=== PATIENT | male | born 1985 | race Caucasian/White ===

== ENCOUNTER 2017-04-30 22:06 | Observation (INO) | payer BC, OTHER ==
[2017-04-30] MEDS ORDERED: KETOROLAC 30 MG/1 ML SDV IVP ONE (23:08)
[2017-04-30] MEDS ORDERED: NS 1,000 ML IV ONE ×2 (23:08→23:51)
--- NOTE | 2017-04-30 23:26 | EDPHY ---
H & P Smoking Status: Current some day smoker Time Seen by Provider: 04/30/17 22:55 HPI/ROS: CHIEF COMPLAINT: Right flank pain, abdominal pain HISTORY OF PRESENT ILLNESS: 31-year-old male presents to the emergency department complaining of severe right flank pain that began at noon today. The patient has a history of frequent kidney stones some he is able to pass on his own and he has also required lithotripsy in the past. Patient states that this does feel like a kidney stone although he states this episode is lasting much longer. Denies hematuria. Denies dysuria, urgency or frequency. Denies any reported trauma. Feels nauseous although no vomiting. No fevers or chills. He has had both left and right-sided kidney stones. REVIEW OF SYSTEMS: Constitutional: No fever, no chills. Eyes: No double or blurry vision. ENT: No sore throat. Respiratory: No cough, no shortness of breath. Cardiac: No chest pain. Gastrointestinal: As above. No vomiting. Diarrhea today. Genitourinary: No dysuria. Musculoskeletal: Right flank pain. No neck pain. Skin: No rashes. Neurological: No headache. (Marii Harrington) Past Medical/Surgical History: Frequent kidney stones requiring lithotripsy (Marii Harrington) Social History: Single and lives in [place] (Marii Harrington) Physical Exam: General Appearance: Alert. Afebrile. Mild distress. Eyes: Pupils equal and round. Extraocular motions are all intact. ENT: Mouth: Mucous membranes moist. Respiratory: No wheezing, rhonchi, or rales, lungs are clear to auscultation. Cardiovascular: Regular rate and rhythm. Gastrointestinal: Abdomen is soft. Mild tenderness with palpation in the right lower quadrant. There is no rebound, guarding or masses noted. Positive CVA tenderness on the right, none on the left. Neurological: Alert and oriented x 3, cranial nerves II through XII grossly intact Skin: Warm and dry, no rashes. Musculoskeletal: Nontender to palpate along the cervical, thoracic or lumbar spine. Neck is supple. Extremities: Full range of motion and no peripheral edema. Psychiatric: Patient is oriented X 3, there is no agitation. (Marii Harrington) Constitutional: Initial Vital Signs Temperature (C) 37.1 C 04/30/17 22:16 Heart Rate 81 04/30/17 22:16 Respiratory Rate 16 04/30/17 22:16 Blood Pressure 124/97 H 04/30/17 22:16 O2 Sat (%) 96 04/30/17 22:16 O2 Delivery Mode Room Air Allergies/Adverse Reactions: No Known Allergies Allergy (Verified 04/30/17 22:18) Home Medications: Medication Instructions Recorded Acetaminophen [Tylenol 325mg (*)] 325 mg PO DAILY PRN 05/01/17 Phenazopyridine HCl [Pyridium] 200 mg PO TID #20 tab 05/02/17 oxyCODONE IR [Oxycodone Ir (*)] 5 - 10 mg PO Q3HRS PRN #10 tab 05/02/17 Medical Decision Making ED Course/Re-evaluation: 31-year-old male presents to the emergency department with right flank pain and right-sided abdominal pain. History of frequent kidney stones. An IV was established and laboratory studies were drawn and are pending. CT scan of the abdomen pelvis without contrast is pending since this patient has a history of frequent kidney stones requiring lithotripsy. Patient was given 15 mg of IV Toradol as well as IV normal saline. Patient was found to have a creatinine of 1.7. He was given additional 1 L of IV normal saline. Patient is developing recurring pain was given 0.5 mg of IV Dilaudid. Case was discussed with Dr. Lalo Dong, secondary supervising physician, who agrees with treatment and plan. (Marii Harrington) CT scan report called to me this patient has a kidney stone 4 x 6 x 7 on the right side mid ureter with moderate hydronephrosis. Given his elevated creatinine. And this significant obstructing stone and ongoing pain I will admit the patient to the hospital. (Lalo Dong) Differential Diagnosis: Including but not limited to kidney stone, pyelonephritis, urinary tract infection, acute appendicitis (Marii Harrington) Care Turn Over: Care will be turned over to Dr. Lalo Dong at 12:10 a.m. for disposition and plan. (Marii Harrington) - Data Points Laboratory Results: Laboratory Results 04/30/17 23:23 04/30/17 23:23 Medications Given: Discontinued Medications Acetaminophen (Tylenol) 650 mg PO Q4HRS PRN PRN Reason: Pain, Mild/Fever, Can Take PO Stop: 10/28/17 00:56 Last Admin: 05/01/17 20:42 Dose: 650 mg Hydromorphone HCl (Dilaudid) 0.5 mg IVP EDNOW ONE Stop: 05/01/17 00:03 Last Admin: 05/01/17 00:05 Dose: 0.5 mg Hydromorphone HCl (Dilaudid) 1 mg IVP EDNOW ONE Stop: 05/01/17 00:49 Last Admin: 05/01/17 00:58 Dose: 1 mg Hydromorphone HCl (Dilaudid) 0.5 - 1 mg IVP Q4HRS PRN PRN Reason: Pain, Severe Unable to Take PO Stop: 05/11/17 00:56 Last Admin: 05/01/17 09:37 Dose: 1 mg Sodium Chloride (Ns) 1,000 mls @ 0 mls/hr IV ONCE ONE PRN Reason: Wide Open Stop: 04/30/17 23:09 Last Admin: 04/30/17 23:22 Dose: 1,000 mls Sodium Chloride (Ns) 1,000 mls @ 0 mls/hr IV ONCE ONE PRN Reason: Wide Open Stop: 04/30/17 23:52 Last Admin: 04/30/17 23:58 Dose: 1,000 mls Sodium Chloride (Ns) 1,000 mls @ 125 mls/hr IV CONT PAVITHRA Stop: 10/28/17 00:59 Last Admin: 05/01/17 03:17 Dose: 1,000 mls Sodium Chloride (Ns) 1,000 mls @ 3,000 mls/hr IV ONCE ONE Stop: 05/01/17 01:16 Last Admin: 05/01/17 02:07 Dose: 1,000 mls Dextrose/Sodium Chloride (D5w Ns) 1,000 mls @ 75 mls/hr IV CONT PAVITHRA Stop: 10/28/17 11:44 Last Admin: 05/02/17 03:45 Dose: 1,000 mls Levofloxacin/Dextrose (Levaquin 500 Mg (Premix)) 100 mls @ 100 mls/hr IV ONCALL ONE PRN Reason: Protocol Stop: 05/02/17 09:29 Last Admin: 05/02/17 09:14 Dose: 100 mls Lactated Ringer's (Lr) 1,000 mls @ 0 mls/hr IV ONCE ONE PRN Reason: As Directed Stop: 05/02/17 08:55 Last Admin: 05/02/17 09:14 Dose: 1,000 mls Iopamidol (Isovue-M 300) Confirm Administered Dose 15 ml .ROUTE .STK-MED ONE Stop: 05/02/17 08:41 Last Admin: 05/02/17 12:12 Dose: Not Given Iopamidol (Isovue-M 300) Confirm Administered Dose 15 ml .ROUTE .STK-MED ONE Stop: 05/02/17 10:08 Last Admin: 05/02/17 10:44 Dose: 15 ml Ketorolac Tromethamine (Toradol) 15 mg IVP EDNOW ONE Stop: 04/30/17 23:09 Last Admin: 04/30/17 23:21 Dose: 15 mg Lidocaine (Uroject Lidocaine 2% Jelly) Confirm Administered Dose 20 ml .ROUTE .STK-MED ONE Stop: 05/02/17 08:41 Last Admin: 05/02/17 12:12 Dose: Not Given Magnesium Hydroxide (Milk Of Magnesia) 30 ml PO DAILY PAVITHRA PRN Reason: Protocol Stop: 10/28/17 12:44 Last Admin: 05/02/17 12:13 Dose: Not Given Midazolam HCl (Versed) 2 mg IVP ONCALL ONE Stop: 05/02/17 09:15 Last Admin: 05/02/17 09:37 Dose: 2 mg Ondansetron HCl (Zofran) 4 mg IVP EDNOW ONE Stop: 05/01/17 00:12 Last Admin: 05/01/17 01:05 Dose: Not Given Ondansetron HCl (Zofran) 4 mg IVP Q4HRS PRN PRN Reason: Nausea/Vomiting, Can't Take PO Stop: 10/28/17 00:56 Last Admin: 05/01/17 17:39 Dose: 4 mg Oxycodone HCl (Oxycodone Ir) 5 - 10 mg PO Q3HRS PRN PRN Reason: Pain, Severe Able to Take PO Stop: 05/11/17 00:56 Last Admin: 05/02/17 11:40 Dose: 10 mg Phenazopyridine HCl (Pyridium) 200 mg PO TID [facility] Stop: 10/29/17 11:29 Last Admin: 05/02/17 11:45 Dose: 200 mg Polyethylene Glycol (Miralax) 17 gm PO DAILY PAVITHRA PRN Reason: Protocol Stop: 10/28/17 12:44 Last Admin: 05/02/17 12:13 Dose: Not Given Senna/Docusate Sodium (Senokot-S) 1 - 2 tab PO BID [facility] PRN Reason: Protocol Stop: 10/28/17 20:59 Last Admin: 05/02/17 12:13 Dose: Not Given Tamsulosin HCl (Flomax) 0.4 mg PO DAILY [facility] Stop: 10/28/17 01:08 Last Admin: 05/02/17 12:13 Dose: Not Given Departure - Departure Disposition: [facility] Acute Clinical Impression: Kidney stone
[2017-04-30 23:40] LABS: % IMMATURE GRANULYOCYTES 0.5 % (0.0-1.1); ABSOLUTE IMMATURE GRANULOCYTES 0.04 10^3/uL (0.00-0.10); ADD DIFF? NO; ADD MORPH? NO; ADD SCAN? NO; ATYPICAL LYMPHOCYTE FLAG 0 (0-99); FRAGMENT RBC FLAG 0 (0-99); HEMATOCRIT 42.4 % (40.0-51.0); HEMOGLOBIN 15.4 g/dL (13.7-17.5); LEFT SHIFT FLG 0 (0-99); LIPEMIA HEMOLYSIS FLAG 90 (0-99); MEAN CELL HEMOGLOBIN 31.6 pg (27.9-34.1); MEAN CELL HEMOGLOBIN CONCENTR. 36.3 g/dL (32.4-36.7); MEAN CELL VOLUME 86.9 fL (81.5-99.8); MEAN PLATELET VOLUME 9.3 fL (8.7-11.7); PLATELET CLUMPS FLAG 0 (0-99); PLATELET COUNT 234 10^3/uL (150-400); RED BLOOD CELL COUNT 4.88 10^6/uL (4.40-6.38); RED CELL DISTRIBUTION WIDTH 12.5 % (11.5-15.2)
[2017-04-30 23:45] LABS: ANION GAP 10 mEq/L (8-16); CALCIUM 11.3 mg/dL (8.5-10.4); CARBON DIOXIDE 24 mEq/l (22-31); CHLORIDE 97 mEq/L (97-110); CREATININE 1.7 mg/dL (0.7-1.3); GLOMERULAR FILTRATION RATE 47; GLUCOSE 99 mg/dL (70-100); POTASSIUM 3.6 mEq/L (3.5-5.2); SODIUM 131 mEq/L (134-144)
[2017-05-01] MEDS ORDERED: HYDROmorphONE/DILAUDID 1 MG/ML SYR IVP ONE ×2 (00:02→00:48)
[2017-05-01 00:11] LABS: COLOR PALE YELLOW; LEUKOCYTE ESTERASE,URINE NEGATIVE (NEGATIVE); NITRITE,URINE NEGATIVE (NEGATIVE)
[2017-05-01] MEDS ORDERED: ONDANSETRON 4 MG/2 ML VIAL IVP ONE (00:11)
[2017-05-01 00:27] LABS: AMORPHOUS PRESENT /hpf (NONE-1+); MUCUS TRACE /lpf (NONE-1+)
[2017-05-01] MEDS ORDERED: NS 1,000 ML IV ONE (00:57)
[2017-05-01] MEDS ORDERED: TEMAZEPAM 15 MG CAP PO PRN (00:57)
[2017-05-01] MEDS ORDERED: ACETAMINOPHEN 325 MG TAB PO PRN (00:57)
[2017-05-01] MEDS ORDERED: PROMETHAZINE HCL 25 MG/ML INJ IVP PRN (00:57)
[2017-05-01] MEDS ORDERED: NS 1,000 ML IV SCH (01:00)
--- NOTE | 2017-05-01 01:37 | GHP ---
[f rep st] HISTORY AND PHYSICAL DATE OF ADMISSION: 05/01/2017 CHIEF COMPLAINT: Right-sided flank pain. HISTORY OF PRESENT ILLNESS: This is a 31-year-old male with a history of multiple kidney stones, pr esents with right-sided flank pain. This started acutely at about 12:15 p.m. He took 3 Advil today because of this. Pain is severe in nature. It comes in waves. He has had multiple kidney stones in the past about 20. He has required hospitalization 2 times, 1 of which resulted in a lithotripsy . His urologist at that point was in [place], sent his stone for analysis, however, he never follo wed up. He also took Tums today. In the ED, he received 15 mg of Toradol. PAST MEDICAL/SURGICAL HISTORY: History of kidney stones. MEDICATIONS: None regularly. ALLERGIES: No known drug allergies. FAMILY HISTORY: His father has heart disease. His father has had 3 kidney stones. SOCIAL HISTORY: He occasionally drinks. He also occasionally smokes. REVIEW OF SYSTEMS: A 10-point review of systems is conducted and is negative except per HPI. PHYSICAL EXAM: VITAL SIGNS: Blood pressure 142/78, heart rate 60, respiration rate 16, saturating at 94% on room air, temperature is 37.1. GENERAL: The patient is a pleasant man who appears somewh at uncomfortable moving around in his bed. HEENT: Shows him to be normocephalic, atraumatic. CARD IOVASCULAR: Regular rate and rhythm. No murmurs, rubs, or gallops. PULMONARY: Shows lungs clear to auscultation bilaterally. ABDOMEN: Soft, mildly tender to palpation on the right-hand side. Se ems to be quite tender to palpation in the right side. SKIN: Shows no rash. : Shows no Harris. NEUROLOGIC: Shows him to be alert and oriented x3. He is moving all extremities. PSYCHIATRIC: E xam shows a normal mood and affect. LABORATORY DATA: CBC is normal. Sodium is 131, creatinine is 1.7, calcium is 11.3. Urinalysis lucille ws trace blood and trace ketones. DATA: 1. I discussed this with Dr. Dong in the emergency department. Will admit to med/surg. 2. I reviewed his abdomen and pelvis CT scan. This shows a stone in his right ureter causing moder ate right-sided hydronephrosis. IMPRESSION AND PLAN: A 31-year-old male with a history of kidney stones, presents with right-sided renal stone and kidney injury. 1. Right-sided obstructive kidney stone causing moderate right-sided hydroureter: Stone is 5 x 6 x 7, does not seem likely to pass. Will go ahead and hydrate him aggressively and start him on Floma x. If the stone has not passed in the morning, will consult Urology. Made him n.p.o. 2. Acute kidney injury: This is presumed acute, however, we have no old creatinine's in our system . I note that his BUN is normal. Differential includes prerenal due to dehydration, nonsteroidal a nti-inflammatory use, prior and at the ED versus postrenal with his right-sided hydroureter and hydr onephrosis. Check urine lytes. Will hydrate him aggressively. Hold nephrotoxins and recheck a cre atinine in the morning. 3. Hypercalcemia: Unsure if this is due to dehydration or more chronic. It might explain his ston es. Will recheck in the morning with hydration. If still elevated, will draw a PTH. 4. Hyponatremia: Suspect this is hypovolemic. Recheck in the morning after hydration. /[id number]/MODL
[2017-05-01] MEDS ORDERED: TAMSULOSIN HCL 0.4 MG CAP PO ONE (02:05)
[2017-05-01] MEDS: TAMSULOSIN HCL 0.4 MG CAP PO SCH ×2 (02:07→08:30)
[2017-05-01] MEDS: oxyCODONE IR 5 MG TAB PO PRN ×3 (03:17→22:34)
[2017-05-01] MEDS: HYDROmorphONE/DILAUDID 1 MG/ML SYR IVP PRN ×2 (04:19→09:37)
[2017-05-01 05:12] LABS: % IMMATURE GRANULYOCYTES 0.3 % (0.0-1.1); ABSOLUTE IMMATURE GRANULOCYTES 0.02 10^3/uL (0.00-0.10); ADD DIFF? NO; ADD MORPH? NO; ADD SCAN? NO; ATYPICAL LYMPHOCYTE FLAG 10 (0-99); FRAGMENT RBC FLAG 0 (0-99); HEMOGLOBIN 13.7 g/dL (13.7-17.5); LEFT SHIFT FLG 0 (0-99); LIPEMIA HEMOLYSIS FLAG 90 (0-99); MEAN CELL HEMOGLOBIN 31.6 pg (27.9-34.1); MEAN CELL HEMOGLOBIN CONCENTR. 35.1 g/dL (32.4-36.7); MEAN CELL VOLUME 89.9 fL (81.5-99.8); MEAN PLATELET VOLUME 9.4 fL (8.7-11.7); PLATELET CLUMPS FLAG 20 (0-99); PLATELET COUNT 190 10^3/uL (150-400); RED BLOOD CELL COUNT 4.34 10^6/uL (4.40-6.38); RED CELL DISTRIBUTION WIDTH 12.6 % (11.5-15.2)
[2017-05-01 05:25] LABS: ANION GAP 8 mEq/L (8-16); CALCIUM 9.1 mg/dL (8.5-10.4); CARBON DIOXIDE 25 mEq/l (22-31); CHLORIDE 105 mEq/L (97-110); CREATININE 1.7 mg/dL (0.7-1.3); GLOMERULAR FILTRATION RATE 47; GLUCOSE 94 mg/dL (70-100); SODIUM 138 mEq/L (134-144)
[2017-05-01] MEDS: ONDANSETRON 4 MG/2 ML VIAL IVP PRN ×2 (09:11→17:39)
[2017-05-01] MEDS ORDERED: HYDROmorphONE/DILAUDID 6 MG/30 ML PCA IV PRN (12:38)
[2017-05-01] MEDS ORDERED: NALOXONE HCL 0.4 MG/ML INJ IVP PRN (12:38)
[2017-05-01] MEDS ORDERED: METOCLOPRAMIDE 10 MG/2 ML VIAL IVP PRN (12:38)
[2017-05-01] MEDS ORDERED: BISACODYL 10 MG SUPP PR PRN (12:39)
[2017-05-01] MEDS ORDERED: LACTULOSE 20 GM/30 ML UDCUP PO PRN (12:39)
--- NOTE | 2017-05-01 13:43 | HOSPPROG ---
Hospitalist Progress Note Assessment/Plan: R obstructive ureteral stone with hydronephrosis -change to [facility] dilaudid -Dr Rey consulted for definitive management DANNY -IVF -creat unchanged today -anticipate resolving when stone removed hypoNa, hyperCa -resolved anemia -? from hydration, check in AM DVT prophy- low risk/ambulate, hold meds as possible surgical intervention FULL CODE DISPO- 1-2 more mdnts depending upon possible surgical intervention Subjective: Pain OK with meds. No v/d/fever. Objective: Vital Signs Temp Pulse Resp BP Pulse Ox 98.3 F 63 16 130/75 H 96 05/01/17 11:35 05/01/17 11:35 05/01/17 11:35 05/01/17 11:35 05/01/17 11:35 Laboratory Results 05/01/17 05:05 05/01/17 05:05 04/30/17 05/01/17 05/02/17 11:59 11:59 11:59 Intake Total 3395 Output Total 200 400 Balance 3195 -400 - Pending Discharge Pending Discharge Within 48 Hours: Yes Pending Discharge Date: 05/03/17 Pending Discharge Time: 11:00 - Physical Exam Constitutional: no apparent distress, appears nourished, uncomfortable Eyes: anicteric sclera, EOMI Ears, Nose, Mouth, Throat: moist mucous membranes, hearing normal Cardiovascular: regular rate and rhythym, no murmur, rub, or gallop Respiratory: no respiratory distress, no rales or rhonchi, clear to auscultation Gastrointestinal: normoactive bowel sounds, No guarding, No rebound, No distension Skin: warm, No rash Psychiatric: interacting appropriately, not anxious, not encephalopathic, thought process linear ICD10 Worksheet Patient Problems: Problems Problem Status Onset Ureteral stone with hydronephrosis Acute - ICD10 Problem Qualifiers (1) Ureteral stone with hydronephrosis
[2017-05-01] MEDS: POLYETHYLENE GLYCOL 3350 17 GM PKT PO SCH (15:35)
[2017-05-01] MEDS: MAGNESIUM HYDROXIDE 30 ML UDCUP PO SCH (15:35)
[2017-05-01] MEDS ORDERED: SODIUM CL NASAL 45 ML BTL EACHNARE PRN (15:40)
--- NOTE | 2017-05-01 19:05 | SOAPPROG ---
MARCELINA Progress Note Assessment/Plan: Assessment: 1. Right proximal ureteral calculus. 2. Bilateral nonobstructive nephrolithiasis. 3. Elevated creatinine. Plan: 1. Continue medical management tonight. 2. Proceed with intraoperative ureteroscopy tomorrow if stone does not spontaneously pass. 3. Per pt. request, repeat noncontrast CT scan will be performed early tomorrow AM if stone has not passed by that time. He wants this done prior to proceeding w/ surgery. See full dictated consultation (# [id number]). Objective: Vital Signs Temp Pulse Resp BP Pulse Ox 36.8 C 95 18 123/75 H 94 05/01/17 17:25 05/01/17 17:25 05/01/17 17:25 05/01/17 17:25 05/01/17 17:25 Laboratory Results 05/01/17 05:05 05/01/17 05:05 04/30/17 05/01/17 05/02/17 05:59 05:59 05:59 Intake Total 3395 1665 Output Total 200 1700 Balance 3195 -35 ICD10 Worksheet Patient Problems: Problems Problem Status Onset Ureteral stone with hydronephrosis Acute
[2017-05-01] MEDS: D5W NS 1,000 ML IV SCH (19:31)
--- NOTE | 2017-05-01 19:44 | GCON ---
[f rep st] CONSULTATION UROLOGY CONSULTATION DATE OF CONSULTATION: 05/01/2017 REQUESTED BY: Hospitalists Service. REASON FOR CONSULTATION: Symptomatic right ureteral calculus. HISTORY: This is a 31-year-old otherwise healthy gentleman who started experiencing right flank pain approximately 2 days ago that began to radiate into the right lower quadrant. The pain became severe enough that he presented to the emergency room early this morning. CT scan was performed, which revealed a sizable right ureteral calculus. The patient was admitted for further management. Since admission, the patient has been treated successfully with parental analgesics for his pain. He has not had any pain since earlier this morning; however, this afternoon he did have increased nausea, which required at least 2 different doses of antiemetics intravenously. He has not passed the stone yet to his knowledge. He denies any associated fevers, flu- like symptoms, dysuria, gross hematuria, or changes in his voiding pattern. He has had numerous kidney stones over the last 12+ years, spontaneously passing at least 20. He has had 1 prior procedure. Stone composition is unknown. PAST MEDICAL HISTORY: Notable for recurrent nephrolithiasis (as above). PAST SURGICAL HISTORY: Includes extracorporeal shock wave lithotripsy in approximately 2005 and exploratory laparotomy with spleen repair at age 13. ADMISSION MEDICATIONS: None. MEDICAL ALLERGIES: None known. FAMILY HISTORY: His father has had kidney stones. SOCIAL HISTORY: The patient is single and lives in the [place] area. He smokes an occasional cigarette. He previously smoked about 1 pack every 2 days up until June 2016. He consumes alcohol about every couple days. He denies any illicit drug use. REVIEW OF SYSTEMS: Unremarkable, other than mentioned above in the HPI. PHYSICAL EXAM: GENERAL: Well-developed, well-nourished white male, in no acute distress presently. VITAL SIGNS: Temperature 36.8 Celsius, blood pressure 123/75, pulse 95, respirations 18, oxygen saturation is 94% in room air. Height 182 cm, weight 86 kg, BMI 26. HEENT: Normocephalic, atraumatic. NECK: Supple. HEART: Regular rate. Chest: Unlabored respiratory pattern. Abdomen: Soft with mild right lower quadrant tenderness to deep palpation without peritoneal signs. No involuntary guarding. BACK: No CVA tenderness. GENITALIA: Normal circumcised phallus with normal meatus in the proper position. Scrotal structures are normal. VASCULAR: Normal femoral, dorsalis pedis, and posterior tibial pulses bilaterally. EXTREMITIES: Warm without cyanosis, clubbing, or significant edema. NEUROLOGIC: He is alert and oriented. He answers all questions appropriately with normal mood and affect. DIAGNOSTICS: Noncontrast abdominopelvic CT scan today: upon my review, notable for the following renal calculi: 5 x 3.5 mm right lower pole, punctate left upper pole, 4.5 x 3 mm left midpole, 2.5 mm left lower pole, and 2 separate 1 mm left lower pole calculi. There is mild right hydronephrosis and hydroureter down to a 6 x 4 x 5 mm long calculus at L5. No other ureteral calculi are seen. LABORATORY: Admission electrolytes notable for creatinine 1.7 and calcium 11.3. However, chemistry panel from this morning reveals calcium down to 9.1 with creatinine still at 1.7; normal electrolytes otherwise. CBC is unremarkable. Urinalysis is unremarkable as well. IMPRESSION: 1. Symptomatic sizable right proximal ureteral calculus. 2. Bilateral asymptomatic nonobstructing nephrolithiasis. Management options were reviewed with the patient today. These would include medical management, as we are currently providing, and ureteroscopy. Extracorporeal shock wave lithotripsy is not an option based on the location of this stone. All aspects regarding ureteroscopy were reviewed with the patient today, including technical aspects, typical recovery time, expected benefits, and potential risks/complications (including, but not limited to, inability to remove existing calculus, inability to find a calculus, urinary tract infection , urinary tract scarring, inability to place a stent, and side effects related to indwelling ureteral stent). All the patient's questions were answered to his apparent satisfaction today. PLAN: 1. Continue medical management with high rate IV fluids and Flomax. 2. Symptomatic management with parental analgesics and antiemetics as necessary. He is not a candidate for Toradol due to his elevated creatinine. 3. Per patient request, if he does not spontaneously pass this stone tonight, he will undergo repeat noncontrast CT scan in the morning. If stone is still in the ureter at that time, then we will proceed with intraoperative ureteroscopy and calculus management, currently scheduled for 9 a.m. tomorrow. Thank you for this consultation. /[id number]/MODL MTDD
[2017-05-01] MEDS: SENNOSIDES/DOCUSATE SODIUM TAB PO SCH (20:41)
[2017-05-02] MEDS: D5W NS 1,000 ML IV SCH (03:45)
[2017-05-02] MEDS: oxyCODONE IR 5 MG TAB PO PRN ×2 (03:57→11:40)
[2017-05-02 05:53] LABS: % IMMATURE GRANULYOCYTES 0.2 % (0.0-1.1); ABSOLUTE IMMATURE GRANULOCYTES 0.01 10^3/uL (0.00-0.10); ADD DIFF? NO; ADD MORPH? NO; ADD SCAN? NO; ATYPICAL LYMPHOCYTE FLAG 0 (0-99); FRAGMENT RBC FLAG 0 (0-99); HEMATOCRIT 37.4 % (40.0-51.0); LEFT SHIFT FLG 0 (0-99); LIPEMIA HEMOLYSIS FLAG 90 (0-99); MEAN CELL HEMOGLOBIN 31.8 pg (27.9-34.1); MEAN CELL HEMOGLOBIN CONCENTR. 34.8 g/dL (32.4-36.7); MEAN CELL VOLUME 91.4 fL (81.5-99.8); MEAN PLATELET VOLUME 9.5 fL (8.7-11.7); PLATELET CLUMPS FLAG 0 (0-99); PLATELET COUNT 181 10^3/uL (150-400); RED BLOOD CELL COUNT 4.09 10^6/uL (4.40-6.38); RED CELL DISTRIBUTION WIDTH 12.8 % (11.5-15.2)
[2017-05-02 06:08] LABS: ANION GAP 9 mEq/L (8-16); CALCIUM 8.3 mg/dL (8.5-10.4); CARBON DIOXIDE 25 mEq/l (22-31); CHLORIDE 107 mEq/L (97-110); CREATININE 1.4 mg/dL (0.7-1.3); GLOMERULAR FILTRATION RATE 59; GLUCOSE 97 mg/dL (70-100); POTASSIUM 3.7 mEq/L (3.5-5.2); SODIUM 141 mEq/L (134-144)
[2017-05-02] MEDS ORDERED: levOFLOXACIN 500 MG/DEXTROSE 100 ML IV ONE (08:30)
[2017-05-02] MEDS ORDERED: LIDOCAINE 2% JELLY 20 ML (UROJECT) ONE (08:40)
[2017-05-02] MEDS ORDERED: IOPAMIDOL (ISOVUE-M 300) 15 ML VIAL ONE ×2 (08:40→10:07)
[2017-05-02] MEDS ORDERED: LR 1,000 ML IV ONE (08:54)
--- NOTE | 2017-05-02 09:13 | SOAPPROG ---
MARCELINA Progress Note Assessment/Plan: Assessment: 1. Right proximal ureteral calculus. 2. Bilateral nonobstructive nephrolithiasis. 3. Elevated creatinine. Plan: Repeat noncontrast CT scan from this AM reveals stone to be in same position as prior CT. Proceed with ureteroscopy this AM. Objective: Vital Signs Temp Pulse Resp BP Pulse Ox 37.4 C 99 16 143/81 H 95 05/02/17 09:00 05/02/17 09:00 05/02/17 09:00 05/02/17 09:00 05/02/17 09:00 Laboratory Results 05/02/17 05:32 05/02/17 05:32 05/01/17 05/02/17 05/03/17 05:59 05:59 05:59 Intake Total 2351 6898 Output Total 200 5800 Balance 8418 -5018 ICD10 Worksheet Patient Problems: Problems Problem Status Onset Ureteral stone with hydronephrosis Acute
[2017-05-02] MEDS ORDERED: MIDAZOLAM 2 MG/2 ML VIAL IVP ONE (09:14)
--- NOTE | 2017-05-02 09:14 | PDANEPAE ---
ANE History of Present Illness 31 yo for ureteroscopy ANE Past Medical History - Cardiovascular History Hx Hypertension: No Hx Arrhythmias: No Hx Chest Pain: No Hx Coronary Artery / Peripheral Vascular Disease: No Hx CHF / Valvular Disease: No Hx Palpitations: No - Pulmonary History Hx COPD: No Hx Asthma/Reactive Airway Disease: No Hx Recent Upper Respiratory Infection: No Hx Oxygen in Use at Home: No Hx Sleep Apnea: No Sleep Apnea Screening Result - Last Documented: Positive - Endocrine History Hx Diabetes: No - Chronic Pain History Chronic Pain: No ANE Review of Systems - Exercise capacity METS (RN): 4 METS ANE Patient History - Allergies Allergies/Adverse Reactions: No Known Allergies Allergy (Verified 04/30/17 22:18) - Home Medications Home medications: home medication list seen and reviewed Home Medications: Acetaminophen [Tylenol 325mg (*)] 325 mg PO DAILY PRN 05/01/17 [Last Taken 05/01 20:30] Calcium Carbonate [Tums 500MG (*)] 500 mg PO DAILY PRN 05/01/17 [Last Taken 18:00] Ibuprofen [Motrin (*)] 200 mg PO DAILY PRN 05/01/17 [Last Taken 04/30/17 18:00] - NPO status NPO Status: no food or drink >8 hours NPO Since - Liquids (Date): 05/01/17 NPO Since - Liquids (Time): 23:55 NPO Since - Solids (Date): 05/01/17 NPO Since - Solids (Time): 21:00 - Anes Hx Anes Hx: no prior problems - Smoking Hx Smoking Status: Current some day smoker ANE Labs/Vital Signs - Labs Result Diagrams: 05/02/17 05:32 05/02/17 05:32 - Vital Signs Blood Pressure: 143/81 Heart Rate: 99 Respiratory Rate: 16 O2 Sat (%): 95 Height: 6 ft Weight: 86.183 kg ANE Physical Exam - Airway Neck exam: FROM Mallampati Score: Class 2 Mouth exam: normal dental/mouth exam - Pulmonary Pulmonary: no respiratory distress - Cardiovascular Cardiovascular: regular rate and rhythym - ASA Status ASA Status: II ANE Anesthesia Plan Anesthesia Plan: general endotracheal anesthesia
[2017-05-02] MEDS ORDERED: fentaNYL 100 MCG/2 ML INJ ONE (09:41)
[2017-05-02] MEDS ORDERED: REMIFENTANIL HCL 1 MG VIAL ONE (09:41)
[2017-05-02] MEDS ORDERED: PROPOFOL/EMULSION 500 MG/50 ML BOTTLE IV ONE (09:42)
[2017-05-02] MEDS ORDERED: METOCLOPRAMIDE 10 MG/2 ML VIAL ONE (09:44)
[2017-05-02] MEDS ORDERED: DEXAMETHASONE 4 MG/ML VIAL ONE (09:44)
[2017-05-02] MEDS ORDERED: ROCURONIUM 50 MG/5 ML VIAL ONE (09:44)
[2017-05-02] MEDS ORDERED: ONDANSETRON 4 MG/2 ML VIAL IVP PRN (10:21)
[2017-05-02] MEDS ORDERED: fentaNYL 100 MCG/2 ML INJ IVP PRN (10:21)
[2017-05-02] MEDS ORDERED: NALOXONE HCL 0.4 MG/ML INJ IVP PRN (10:21)
[2017-05-02 10:59] VITALS: TEMP 97.3
--- NOTE | 2017-05-02 10:59 | POSTOPPROG ---
Post Op Note Date of Operation: 05/02/17 Surgeon: Marge Rey (# [id number]) Anesthesia: GET(General Endotracheal) Pre-op Diagnosis: Right proximal ureteral calculus Post-op Diagnosis: Right proximal ureteral calculus Procedure: Ureteroscopy w/ laser lithotripsy, basket extraction, stent placement Findings: See op note Inf/Abcess present in the surg proc area at time of surgery?: No EBL: Minimal Complications: None Specimen(s): Calculus fragment Text Box - Additional Text Additional Text: To RR in stable condition. He should be ready for discharge later today. Please discharge with Rx's for narcotic of choice & Uribel 1 capsule QID for 2 weeks.
[2017-05-02] MEDS ORDERED: PHENAZOPYRIDINE HCL 200 MG TAB PO SCH (11:30)
--- NOTE | 2017-05-02 11:31 | GOP ---
[f rep st] OPERATIVE REPORT DATE OF OPERATION: 05/02/2017 SURGEON: Marge Rey MD ANESTHESIA: General endotracheal. PREOPERATIVE DIAGNOSIS: Symptomatic right proximal ureteral calculus. POSTOPERATIVE DIAGNOSIS: Symptomatic right proximal ureteral calculus. PROCEDURE PERFORMED: 1. Cystourethroscopy, right retrograde pyelography. 2. Right ureteroscopy with holmium laser calculus lithotripsy and basket extraction. 3. Right ureteral stent placement (4.7-Monegasque x 26 cm). FINDINGS: Right proximal ureteral calculus. SPECIMENS: Calculus fragment. ESTIMATED BLOOD LOSS: Minimal. INDICATIONS: This gentleman was admitted yesterday with a symptomatic obstructing right proximal ureteral calculus which he has been unable to pass spontaneously. It was recommended that he undergo intraoperative management. The indications for the procedures as well as potential risks and complications were discussed with the patient preoperatively. He appeared to understand, his questions were answered, and he wished to proceed. Written informed surgical consent was thereafter obtained. DESCRIPTION OF PROCEDURE: The patient was brought to the operating room and administered general endotracheal anesthesia. He was carefully placed in the dorsal lithotomy position on the cystoscopic table, utilizing Miles stirrups. The genital area was sterilely prepped with Betadine scrub and paint, then draped in the usual sterile fashion. Cystoscopy was performed with a 30-degree lens through a 22-Monegasque sheath. Anterior urethra revealed no abnormalities. Posterior urethra revealed minimal BPH. Examination of the bladder revealed no abnormalities. Ureteral orifices were normal in regards to shape and position along the trigone. A 5-Monegasque open-ended ureteral catheter was used to perform retrograde pyelography on the right side. This revealed a filling defect, as well as a pre -contrast calcification on camera mechanic fluoroscopy, at about the L4 transverse process in the right ureter. There was mild to moderate proximal hydronephrosis and hydroureter. No other filling defects were appreciated. A 10 cm balloon dilator was used to dilate the entire length of the ureter distal to the calculus with 2 separate inflations and deflations by maintaining a pressure of 16 atmospheres throughout the 4 minutes on each occasion. The balloon dilator and cystoscope were then removed while keeping the guidewire in place. Semi-rigid ureteroscopy was performed alongside the guidewire. It should also be mentioned that prior to performing balloon dilation and after injecting contrast for retrograde pyelogram purposes, a 0.035 inch angle tipped hydrophilic guidewire was advanced up the right ureter, with the aid of a 5- Monegasque open-ended ureteral catheter, and advanced around the calculus and into the renal collecting system as noted fluoroscopically. Semi-rigid ureteroscopy was then performed alongside the guidewire following the ureteral dilation. The calculus was identified and a 365 micron holmium laser fiber used to fragment the calculus into multiple small pieces, the most dominant of which were removed unremarkably with a Nitinol ZeroTip stone basket. The ureteroscope was removed and the cystoscope was back loaded over the guidewire. A 4.7-Monegasque x 26 cm hydrophilic ureteral stent was advanced over the guidewire until it was properly positioned as seen fluoroscopically in the kidney and cystoscopically in the bladder. The bladder was then drained of all return which was clear. The instruments were removed and 20 cc of 2% lidocaine injected transurethrally for postoperative analgesic purposes. The patient was then awakened, extubated, transferred to his bed, then taken to the recovery room. He tolerated the procedure well overall. COMPLICATIONS: None. DISPOSITION: He was taken to the recovery room in stable condition. He can be discharged later today once deemed appropriate by the hospitalist service with instructions to return my office in about 2 weeks for ureteral stent removal. /[id number]/MODL MTDD
--- NOTE | 2017-05-02 11:35 | POSTANESTH ---
Post Anesthetic Evaluation Cardiovascular Status: Normal, Stable Respiratory Status: Normal, Stable Level of Consciousness/Mental Status: Can Participate in Eval Pain Control: Adequate, Prn Tx Ordered Nausea/Vomiting Control: Adequate, Prn Tx Ordered Complications Possibly Related to Anesthesia: None Noted
[2017-05-02 11:44] VITALS: RESP 16
[2017-05-02] MEDS: SENNOSIDES/DOCUSATE SODIUM TAB PO SCH (12:13)
[2017-05-02] MEDS: MAGNESIUM HYDROXIDE 30 ML UDCUP PO SCH (12:13)
[2017-05-02] MEDS: POLYETHYLENE GLYCOL 3350 17 GM PKT PO SCH (12:13)
[2017-05-02] MEDS: TAMSULOSIN HCL 0.4 MG CAP PO SCH (12:13)
[2017-05-02 13:30] VITALS: O2SAT 94
[2017-05-02 14:12] VITALS: BP 114/72; PULSE 69
--- NOTE | 2017-05-02 18:48 | GDS ---
[f rep st] DISCHARGE SUMMARY DISCHARGE DIAGNOSES: 1. Kidney stone, status post stent. 2. Hydronephrosis due to obstruction. 3. Acute renal failure. HISTORY: The patient is a 31-year-old male with a previous history of multiple kidney stones presen ting with right-sided flank pain. He has had multiple kidney stones in the past and has required pr evious lithotripsy. He presented to the hospital, and CAT scan showed a sizable stone, 7 mm longitu dinally. This was unlikely to pass on its own. Dr. Rey was consulted from Urology, and the too ent underwent stent placement. He is doing well post stent placement and has been cleared by Dr. Me valera to discharge home. He will need to follow up in 2 weeks for stent removal. DISCHARGE MEDICATIONS: Please see computer record for full detailed list. New medications: 1. Oxycodone 5-10 mg every 3 hours as needed. I dispensed 10 tablets. 2. Pyridium 200 mg p.o. t.i.d. as needed. Discontinued medications: 1. Ibuprofen because his creatinine is elevated. 2. Calcium carbonate due to his stone formation and elevated calcium on presentation. ADDITIONAL DISCHARGE INSTRUCTIONS: Follow up with Dr. Rey in 2 weeks for ureteral stent removal. Greater than 30 minutes' time was spent arranging this discharge. Patient was seen and examined by me on the day of discharge. /[id number]/MODL
== END 2017-05-02 15:34 | disposition home or self-care (01) ==
LOC: INTOOBSV 05-01 00:43 → UNDOADMOB 05-01 00:43 → F1N 05-01 02:41
PROVIDERS: ADMIT Student in an Organized Health Care Education/Training Program; ATTEND Student in an Organized Health Care Education/Training Program
PROC: BT161ZZ Fluoroscopy of Right Ureter using Low Osmolar Contrast (ICD-10-PCS; principal; 2017-05-01)
PROC: 0T768DZ Dilation of Right Ureter with Intraluminal Device, Via Natural or Artificial Opening Endoscopic (ICD-10-PCS; principal; 2017-05-01)
PROC: 0TC68ZZ Extirpation of Matter from Right Ureter, Via Natural or Artificial Opening Endoscopic (ICD-10-PCS; principal; 2017-05-01)
DX: N13.2 Hydronephrosis with renal and ureteral calculous obstruction (principal); N17.9 Acute kidney failure, unspecified; D64.9 Anemia, unspecified; F17.210 Nicotine dependence, cigarettes, uncomplicated; Z87.442 Personal history of urinary calculi
CPT/HCPCS: 52356; 74176; 76001; 96361; 96374; 96375; 99285; C1726; C1758; C1769; G0378; 82365-90; C2625; J1100; J1170; J1885; J1956; J2250; J2405; J2704; J2765; J3010; Q9967